=== PATIENT | female | born 1955 | race Asian ===

== ENCOUNTER → 2020-04-09 10:08 | Outpatient (BNVA) | payer MEDICARE, OTHER, SELFPAY | PROVIDERS: Visit Provider Registered Nurse | DX: M81.0 Age-related osteoporosis without current pathological fracture (principal); R00.2 Palpitations; E78.5 Hyperlipidemia, unspecified | CPT/HCPCS: 80053; 80061; 85025; 85651; 86141 ==

== ENCOUNTER 2020-04-25 15:23 | Outpatient (CLI) | payer MEDICARE, OTHER, SELFPAY ==
--- NOTE | 2020-04-25 15:45 | XR_ITS ---
WS: [id number] DEXA (DUAL ENERGY X-RAY ABSORPTIOMETRY) Bone mineral density was performed using a [employer] machine. HISTORY: osteoporosis COMPARISON: None available. Lumbar spine BMD (L1-L4): 1.141 g/cm2 T score: -0.3 Z score: 1.9 Total hip BMD: Left: 0.808 g/cm2. T score: -1.6 Z score: 0.1 Right: 0.843 g/cm2. T score: -1.3 Z score: 0.4 10 year probability of a major osteoporotic fracture is 7%. XR/XR DEXA axial skeleton* [id number] IMPRESSION: OSTEOPENIA based upon the WHO classification for females.
== END 2020-04-25 15:24 | disposition home or self-care (01) ==
LOC: RADWPI 15:28
PROVIDERS: PCP Registered Nurse; Visit Provider Registered Nurse
DX: M81.0 Age-related osteoporosis without current pathological fracture (principal); M85.89 Other specified disorders of bone density and structure, multiple sites
CPT/HCPCS: 77080

== ENCOUNTER 2020-05-29 10:39 | Outpatient (CLI) | payer MEDICARE, OTHER, SELFPAY ==
--- NOTE | 2020-05-29 10:46 | MM_ITS ---
WS: [id number] BILATERAL SCREENING DIGITAL MAMMOGRAM WITH CAD HISTORY: SCREENING COMPARISON: None available. Bilateral CC and MLO views submitted. Computer aided detection analyzed. Breast composition: The breasts are heterogeneously dense, which may obscure small masses. No suspici ous masses, microcalcifications or architectural distortion. MM/[place] [id number] IMPRESSION: BI-RADS: 1-Negative FOLLOW UP: 1 Year Follow-up
== END 2020-05-29 10:40 | disposition home or self-care (01) ==
LOC: RADWPI 10:45
PROVIDERS: PCP Registered Nurse; Visit Provider Registered Nurse
DX: Z12.31 Encounter for screening mammogram for malignant neoplasm of breast (principal)
CPT/HCPCS: 77067

== ENCOUNTER → 2020-06-27 11:13 | Outpatient (BNVA) | payer MEDICARE, OTHER, SELFPAY | PROVIDERS: PCP Registered Nurse; Referring Provider Registered Nurse; Visit Provider Podiatrist Foot & Ankle Surgery | DX: M79.671 Pain in right foot (principal); M20.11 Hallux valgus (acquired), right foot; S92.344D Nondisplaced fracture of fourth metatarsal bone, right foot, subsequent encounter for fracture with routine healing; Z46.89 Encounter for fitting and adjustment of other specified devices; S92.341D Displaced fracture of fourth metatarsal bone, right foot, subsequent encounter for fracture with routine healing; X58.XXXD Exposure to other specified factors, subsequent encounter | CPT/HCPCS: 73630; 97760; L4361 ==

== ENCOUNTER 2020-06-27 14:30 | Outpatient (CLI) | payer MEDICARE, OTHER, SELFPAY | END 2020-06-27 14:31 | disposition home or self-care (01) | LOC: SPT 14:32 | PROVIDERS: PCP Registered Nurse; Visit Provider Podiatrist Foot & Ankle Surgery | DX: Z46.89 Encounter for fitting and adjustment of other specified devices (principal); S92.341D Displaced fracture of fourth metatarsal bone, right foot, subsequent encounter for fracture with routine healing; X58.XXXD Exposure to other specified factors, subsequent encounter | CPT/HCPCS: 97760; L4361 ==

== ENCOUNTER 2020-07-03 12:30 | Outpatient (RCR) | payer MEDICARE, OTHER, SELFPAY | END 2020-07-30 23:59 | disposition home or self-care (01) | LOC: SPT 12:30 | PROVIDERS: PCP Registered Nurse; Visit Provider Registered Nurse | DX: M43.10 Spondylolisthesis, site unspecified (principal); M54.41 Lumbago with sciatica, right side | CPT/HCPCS: 97110; 97161 ==

== ENCOUNTER 2020-07-24 14:36 | Outpatient (CLI) | payer MEDICARE, OTHER, SELFPAY ==
--- NOTE | 2020-07-24 14:42 | MR_ITS ---
WS: [id number] MRI LUMBAR SPINE NONCONTRAST HISTORY: Spondylolisthesis with RIGHT sided pain. COMPARISON: None available. TECHNIQUE: Sagittal and axial multisequence imaging is submitted. 7 cervical and 12 thoracic vertebral bodies are identified. Cannot identify if T12 is rib-bearing on the MRI exam. There are only 4 lumbar type vertebral bodies. Fifth lumbar vertebral body is either ab sent or sacralized. This numbering pattern will be important if surgery is ever contemplated. C3 anterolisthesis by 5.5 mm and C4 anterolisthesis by 6.5 mm. Severe degenerative disc disease at C3 -4 and C4-5. There is a small amount of marrow edema along the adjacent endplates of L3 and L4 and in the right-sided facet joint of L3-4 and the paraspinal soft tissues. No acute fracture. Conus terminates normally at L1-2 disc level. L1-L2: Mild annular disc bulging with facet disease. Mild bilateral foraminal stenosis. L2-L3: Marked facet joint arthritis. Marked ligamentum flavum hypertrophy and facet arthritis and hyp ertrophic bone formation encroaching into the posterior thecal sac at the L3 level. Mild bilateral fo raminal stenosis. L3-L4: Diffuse annular disc bulging with marked facet joint arthritis. Hypertrophic bone formation en croaching into the posterior thecal sac. Moderate stenosis at the inferior L3 level with moderate blayne ateral foraminal stenosis. L4-S1: Unroofing of the disc due to anterolisthesis. Mild disc encroachment upon the ventral thecal s ac. Severe bilateral subarticular and foraminal stenosis, LEFT greater than RIGHT. Visualized retroperitoneum is negative. MR/MR lumbar spine wo con* [id number] IMPRESSION: 1. If there are 7 cervical and 12 thoracic vertebral bodies there are only 5 l umbar type vertebral bodies. Cannot evaluate rib-bearing vertebral bodies on th is MRI of the lumbar spine. For further numbering a CT of the lumbar spine to i nclude the lower thoracic vertebrae may be helpful. Otherwise only 4 lumbar joseph tebral bodies are identified on this MRI. If surgery is contemplated in this pa tient correlation with the imaging for correct vertebral levels will be very im portant. 2. Severe bilateral subarticular recess and foraminal stenosis at the L4-S1 le andrei, LEFT greater than RIGHT. 3. Moderate central and bilateral foraminal stenosis at L3-4. 4. Mild bilateral foraminal stenosis at L1-2 and L2-3. 5. Grade 1 anterolisthesis of L3 and L4.
== END 2020-07-24 14:37 | disposition home or self-care (01) ==
LOC: RADSHAW 14:39
PROVIDERS: PCP Registered Nurse; Visit Provider Registered Nurse
DX: M43.16 Spondylolisthesis, lumbar region (principal); M48.061 Spinal stenosis, lumbar region without neurogenic claudication; M48.07 Spinal stenosis, lumbosacral region
CPT/HCPCS: 72148

== ENCOUNTER → 2020-07-30 14:00 | Outpatient (BNVA) | payer MEDICARE, OTHER, SELFPAY | PROVIDERS: PCP Registered Nurse; Visit Provider Podiatrist Foot & Ankle Surgery | DX: M79.671 Pain in right foot (principal); S92.343D Displaced fracture of fourth metatarsal bone, unspecified foot, subsequent encounter for fracture with routine healing; X58.XXXD Exposure to other specified factors, subsequent encounter | CPT/HCPCS: 73630 ==

== ENCOUNTER 2020-07-31 06:00 | Outpatient (RCR) | payer MEDICARE, OTHER, SELFPAY | END 2020-08-30 23:59 | disposition home or self-care (01) | LOC: SPT 06:00 | PROVIDERS: PCP Registered Nurse; Visit Provider Registered Nurse | DX: M43.10 Spondylolisthesis, site unspecified (principal); M54.41 Lumbago with sciatica, right side | CPT/HCPCS: 97110 ==

== ENCOUNTER → 2020-08-09 10:33 | Outpatient (BNVA) | payer MEDICARE, OTHER, SELFPAY | PROVIDERS: PCP Registered Nurse; Visit Provider Orthopaedic Surgery | DX: M54.41 Lumbago with sciatica, right side (principal); M43.16 Spondylolisthesis, lumbar region; M43.17 Spondylolisthesis, lumbosacral region | CPT/HCPCS: 72114 ==

== ENCOUNTER 2020-08-31 06:00 | Outpatient (RCR) | payer MEDICARE, OTHER, SELFPAY | END 2020-09-30 23:59 | disposition home or self-care (01) | LOC: SPT 06:00 | PROVIDERS: PCP Registered Nurse; Visit Provider Registered Nurse | DX: M25.511 Pain in right shoulder (principal) | CPT/HCPCS: 97110 ==

== ENCOUNTER 2020-10-01 06:00 | Outpatient (RCR) | payer MEDICARE, OTHER, SELFPAY | END 2020-10-28 23:59 | disposition home or self-care (01) | LOC: SPT 06:00 | PROVIDERS: PCP Registered Nurse; Visit Provider Registered Nurse | DX: M25.511 Pain in right shoulder (principal) | CPT/HCPCS: 97110 ==

== ENCOUNTER 2020-10-29 06:00 | Outpatient (RCR) | payer MEDICARE, OTHER, SELFPAY | END 2020-11-28 23:59 | disposition home or self-care (01) | LOC: SPT 06:00 | PROVIDERS: PCP Registered Nurse; Referring Provider Orthopaedic Surgery; Visit Provider Orthopaedic Surgery | DX: M25.511 Pain in right shoulder (principal) | CPT/HCPCS: 97110 ==

== ENCOUNTER 2020-10-29 06:00 | Outpatient (RCR) | payer MEDICARE, OTHER, SELFPAY | END 2020-11-28 23:59 | disposition home or self-care (01) | LOC: SPT 06:00 | PROVIDERS: PCP Registered Nurse; Visit Provider Registered Nurse | DX: M25.511 Pain in right shoulder (principal) | CPT/HCPCS: 97110 ==

== ENCOUNTER → 2020-11-08 10:24 | Outpatient (BNVA) | payer MEDICARE, OTHER, SELFPAY | PROVIDERS: PCP Registered Nurse; Visit Provider Orthopaedic Surgery | DX: M19.011 Primary osteoarthritis, right shoulder (principal) | CPT/HCPCS: 73030 ==

== ENCOUNTER 2020-11-16 09:11 | Outpatient (CLI) | payer MEDICARE, OTHER, SELFPAY ==
--- NOTE | 2020-11-16 09:30 | MR_ITS ---
WS: [id number] MRI RIGHT SHOULDER NONCONTRAST TECHNIQUE: Sagittal T2, coronal T1, T2 and proton density imaging. Axial gradient PDE imaging. CLINICAL INFORMATION: M25.519 - Pain in unspecified shoulder COMPARISON: None. FINDINGS: Moderate degenerative arthritis at the AC joint. Mild edema. Synovial thickening. Mild downsloping of the acromion. Narrowing of the subacromial space. Prior rotator cuff repair with rotator cuff anchor . Small subacromial and subdeltoid effusion. Small joint effusion. Fluid in the subcoracoid bursa. Supraspinatus appears intact. Chronic thinning of the distal infraspinatus which appears intact. Flui d along the infraspinatus tendon sheath at the level of the AC joint. Normal teres minor. Normal subs capularis. Mild chronic thinning of the subscapularis. Normal biceps tendon in the bicipital groove. Degenerative fraying of the glenoid labrum which appears grossly intact. Biceps labral anchor appears intact. Chronic thinning of the intra-articular biceps tendon with fluid along the tendon sheath con sistent with tenosynovitis. MR/MR shoulder RT wo con* [id number] IMPRESSION: 1. Moderate degenerative arthritis at the AC joint with mild edema. 2. Subacromial and subdeltoid fluid. 3. Prior rotator cuff repair. Supraspinatus and infraspinatus appear intact. C hronic thinning of the infraspinatus distally. 4. Normal teres minor. 5. Chronic thinning of the subscapularis. 6. Atrophic but intact biceps tendon in the bicipital groove. 7. Atrophic intra-articular biceps tendon with tenosynovitis. 8. Small joint effusion with subcoracoid effusion.
== END 2020-11-16 09:12 | disposition home or self-care (01) ==
LOC: RADSHAW 09:13
PROVIDERS: PCP Registered Nurse; Visit Provider Orthopaedic Surgery
DX: M25.411 Effusion, right shoulder (principal); M65.811 Other synovitis and tenosynovitis, right shoulder; M19.011 Primary osteoarthritis, right shoulder; R60.0 Localized edema
CPT/HCPCS: 73221

== ENCOUNTER → 2020-11-26 09:20 | Outpatient (BNVA) | payer MEDICARE, OTHER, SELFPAY | PROVIDERS: PCP Registered Nurse; Referring Provider Orthopaedic Surgery; Visit Provider Anesthesiology Pain Medicine | DX: M54.41 Lumbago with sciatica, right side (principal); M54.42 Lumbago with sciatica, left side; M48.07 Spinal stenosis, lumbosacral region; M43.16 Spondylolisthesis, lumbar region; M43.17 Spondylolisthesis, lumbosacral region | CPT/HCPCS: 99205 ==

== ENCOUNTER 2020-11-29 06:00 | Outpatient (RCR) | payer MEDICARE, OTHER, SELFPAY | END 2020-12-28 23:59 | disposition home or self-care (01) | LOC: SPT 06:00 | PROVIDERS: PCP Registered Nurse; Referring Provider Orthopaedic Surgery; Visit Provider Orthopaedic Surgery | DX: M25.511 Pain in right shoulder (principal) | CPT/HCPCS: 97110 ==

== ENCOUNTER → 2020-11-30 12:56 | Outpatient (BNVA) | payer MEDICARE, OTHER, SELFPAY | PROVIDERS: PCP Registered Nurse; Visit Provider Anesthesiology Pain Medicine | DX: M54.16 Radiculopathy, lumbar region (principal); M54.41 Lumbago with sciatica, right side | CPT/HCPCS: 64483; 64484; J1100; J3490 ==

== ENCOUNTER → 2020-12-12 12:35 | Outpatient (BNVA) | payer MEDICARE, OTHER, SELFPAY | PROVIDERS: PCP Registered Nurse; Visit Provider Anesthesiology Pain Medicine | DX: M54.41 Lumbago with sciatica, right side (principal) | CPT/HCPCS: 64483; 64484; J1100; J3490 ==

== ENCOUNTER → 2020-12-25 10:58 | Outpatient (BNVA) | payer MEDICARE, OTHER, SELFPAY | PROVIDERS: PCP Registered Nurse; Visit Provider Anesthesiology Pain Medicine | DX: M54.41 Lumbago with sciatica, right side (principal); M43.16 Spondylolisthesis, lumbar region; M48.07 Spinal stenosis, lumbosacral region; M43.17 Spondylolisthesis, lumbosacral region | CPT/HCPCS: 99214 ==

== ENCOUNTER → 2021-01-24 10:07 | Outpatient (BNVA) | payer MEDICARE, OTHER, SELFPAY | PROVIDERS: PCP Registered Nurse; Visit Provider Anesthesiology Pain Medicine | DX: M54.41 Lumbago with sciatica, right side (principal); M48.07 Spinal stenosis, lumbosacral region; M43.16 Spondylolisthesis, lumbar region; M43.17 Spondylolisthesis, lumbosacral region | CPT/HCPCS: 99214 ==

== ENCOUNTER → 2021-04-16 10:23 | Outpatient (BNVA) | payer MEDICARE, OTHER, SELFPAY | PROVIDERS: PCP Registered Nurse; Visit Provider Registered Nurse | DX: I10 Essential (primary) hypertension (principal); M81.0 Age-related osteoporosis without current pathological fracture; E78.5 Hyperlipidemia, unspecified; Z12.31 Encounter for screening mammogram for malignant neoplasm of breast; M85.9 Disorder of bone density and structure, unspecified; Z12.11 Encounter for screening for malignant neoplasm of colon; Z00.00 Encounter for general adult medical examination without abnormal findings; Z13.6 Encounter for screening for cardiovascular disorders | CPT/HCPCS: 80053; 80061; 85025 ==

== ENCOUNTER → 2021-04-22 09:44 | Outpatient (BNVA) | payer MEDICARE, OTHER, SELFPAY | PROVIDERS: PCP Registered Nurse; Visit Provider Anesthesiology Pain Medicine | DX: M54.41 Lumbago with sciatica, right side (principal); M43.16 Spondylolisthesis, lumbar region; M48.07 Spinal stenosis, lumbosacral region; M43.17 Spondylolisthesis, lumbosacral region | CPT/HCPCS: 99213 ==

== ENCOUNTER 2021-06-03 13:35 | Outpatient (CLI) | payer MEDICARE, OTHER, SELFPAY ==
--- NOTE | 2021-06-03 14:00 | MM_ITS ---
WS: [id number] BILATERAL SCREENING DIGITAL MAMMOGRAM WITH CAD HISTORY: Z12.31 - Encounter for screening mammogram for malignant ... COMPARISON: 05/29/2020 04/21/2019 Bilateral CC and MLO views submitted. Computer aided detection analyzed. Breast composition: The breasts are heterogeneously dense, which may obscure small masses. No suspici ous masses, microcalcifications or architectural distortion. MM/[place] [id number] IMPRESSION: BI-RADS: 1-Negative FOLLOW UP: 1 Year Follow-up
--- NOTE | 2021-06-03 14:42 | XR_ITS ---
WS: [id number] Bone mineral density performed on a [employer] IDXA, 06/03/2021 Clinical data: M81.0 - Age-related osteoporosis without current pathology. Comparison study: DEXA scan, 04/25/2020 Findings: The first 4 lumbar vertebral bodies demonstrated the bone mineral density of 1.159 g/cm2 for a young adult T score of -0.2. The bone mineral density has increased slightly compared to the prior study. Measurement of the left hip reveals a bone mineral density of 0.828 g/cm2 with a young adult T score of -1.4. Measurement of the right hip reveals the bone mineral density of 0.850 g/cm2 for young adult T score of -1.3. The bone mineral density of the hips has increased slightly compared to the prior study. XR/XR DEXA axial skeleton* [id number] Impression: 1. Normal bone mineral density of the lumbar spine. 2. Osteopenia of both hips.
== END 2021-06-03 13:36 | disposition home or self-care (01) ==
LOC: RADSHAW 13:39
PROVIDERS: PCP Registered Nurse; Visit Provider Registered Nurse
DX: Z12.31 Encounter for screening mammogram for malignant neoplasm of breast (principal); M81.0 Age-related osteoporosis without current pathological fracture; M85.88 Other specified disorders of bone density and structure, other site
CPT/HCPCS: 77067; 77080

== ENCOUNTER → 2021-07-29 09:59 | Outpatient (BNVA) | payer MEDICARE, OTHER, SELFPAY | PROVIDERS: PCP Registered Nurse; Visit Provider Anesthesiology Pain Medicine | DX: M48.07 Spinal stenosis, lumbosacral region (principal); M43.16 Spondylolisthesis, lumbar region; M43.17 Spondylolisthesis, lumbosacral region; M79.604 Pain in right leg; M79.605 Pain in left leg | CPT/HCPCS: 99214 ==

== ENCOUNTER → 2022-02-05 10:33 | Outpatient (BNVA) | payer MEDICARE, OTHER, SELFPAY | PROVIDERS: PCP Registered Nurse; Visit Provider Internal Medicine Cardiovascular Disease | DX: I34.0 Nonrheumatic mitral (valve) insufficiency (principal); I36.1 Nonrheumatic tricuspid (valve) insufficiency; R00.2 Palpitations; I49.8 Other specified cardiac arrhythmias; R29.898 Other symptoms and signs involving the musculoskeletal system | CPT/HCPCS: 93005; 99214 ==

== ENCOUNTER 2022-02-11 09:01 | Outpatient (CLI) | payer MEDICARE, OTHER, SELFPAY ==
--- NOTE | 2022-02-11 09:30 | MR_ITS ---
WS: [id number] MRI CERVICAL SPINE NONCONTRAST TECHNIQUE: Sagittal T1, T2 and STIR imaging. Axial T2, gradient, and fiesta imaging. CLINICAL INFORMATION: G56.90 - Unspecified mononeuropathy of unspecified upper ... COMPARISON: None. FINDINGS: Straightening of the normal cervical lordosis. Small disc osteophyte protrusion C4-C6. Cord signal is normal. C2-C3: Mild LEFT and no RIGHT foraminal narrowing. Moderate LEFT facet arthropathy. Spinal canal is p atent. C3-C4: Mild facet arthropathy. Spinal canal and foramen are patent. C4-C5: Disc osteophyte complex with endplate ridging. Mild bilateral bony foraminal narrowing RIGHT g reater than LEFT. Mild facet arthropathy. C5-C6: Disc osteophyte complex with endplate ridging. Slight contact of the cervical cord. Mild centr al canal stenosis. Moderate bilateral bony foraminal narrowing. C6-C7: Disc osteophyte complex with endplate ridging. Moderate LEFT greater than RIGHT bony foraminal narrowing. Spinal canal is patent. C7-T1: Mild LEFT and no significant RIGHT foraminal narrowing. Spinal canal is patent. Tiny disc protrusions in the upper thoracic spine at T1-T2 and T2-T3. MR/MR cervical spin wo con* [id number] IMPRESSION: 1. Straightening of the normal cervical lordosis. Cord signal is normal. 2. Mild central canal stenosis C5-C6 with small central disc osteophyte protru kristine. Slight contact of the cervical cord. Mild central canal stenosis at this level. 3. Moderate bilateral C5-C6 bony foraminal narrowing. 4. Mild RIGHT greater than LEFT C4-C5 bony foraminal narrowing. 5. Moderate LEFT greater than RIGHT C6-C7 bony foraminal narrowing. 6. Moderate facet arthropathy C4-C5 C5-C6.
== END 2022-02-11 09:02 | disposition home or self-care (01) ==
LOC: RAD 09:02
PROVIDERS: PCP Registered Nurse; Visit Provider Registered Nurse
DX: M99.01 Segmental and somatic dysfunction of cervical region (principal); G56.90 Unspecified mononeuropathy of unspecified upper limb; M48.02 Spinal stenosis, cervical region; M25.78 Osteophyte, vertebrae; M47.812 Spondylosis without myelopathy or radiculopathy, cervical region
CPT/HCPCS: 72141

== ENCOUNTER 2022-02-20 06:21 | Day surgery (SDC) | payer MEDICARE, OTHER, SELFPAY ==
[2022-02-18 14:21] VITALS: BMI 20.5
[2022-02-20 06:42] VITALS: BP 140/80; PULSE 76; RESP 16; TEMP 36.4; O2SAT 99
[2022-02-20] MEDS: sodium chloride 0.9% 1,000 ML 30 ML IV (06:46)
--- NOTE | 2022-02-20 06:46 | P.HP_ITS ---
Same Day Surgery H&P Indication for Procedure/HPI DATE OF PROCEDURE: February 20, 2022 CHIEF COMPLAINT/INDICATIONFOR SURGICAL PROCEDURE: Screening colonoscopy PREOP DIAGNOSIS: Screening colonoscopy PLANNED PROCEDURE: Operation Date: 02/20/22 08:00 Proposed Procedures p Colonoscopy 13496 Z12.11(Not Applicable) - Delfino Anand MD This is a pleasant 66 years old female patient comes today for screening colonoscopy. Patient reports no change in bowel habits or bleeding per rectum or history of colon polyps or colon cancer. ROS All systems have been reviewed negative except as for the above or per problem list. Medications/Allergies* Home Medications Medication Instructions Recorded Confirmed Type calcium carbonate 600 mg-vitamin 1 cap PO DAILY 04/05/20 02/18/22 History D3 12.5 mcg (500 unit) capsule (Calcium 600 with Vitamin D3) cholecalciferol (vitamin D3) 25 25 mcg PO DAILY 04/05/20 02/18/22 History mcg (1,000 unit) capsule coenzyme Q10 [Co Q-10] 100 mg PO DAILY 04/05/20 02/18/22 History glucosamine HCl 1,500 mg tablet 1,500 mg PO BID tab 04/05/20 02/18/22 History magnesium oxide 400 mg PO DAILY 04/05/20 02/18/22 History turmeric 1,000 mg PO DAILY 04/05/20 02/18/22 History vitamin B complex (B 1 tab PO DAILY 04/05/20 02/18/22 History Complex-Vitamin B12) vitamin E (dl, acetate) 180 mg 400 unit PO DAILY 04/05/20 02/18/22 History (400 unit) capsule ascorbate calcium (vitamin C) 500 500 mg PO DAILY tab 02/05/22 02/18/22 History mg tablet potassium gluconate 595 mg (99 mg) 595 mg PO DAILY 02/05/22 02/18/22 History tablet strontium gluconate-vitamins 1 tab PO DAILY 02/18/22 02/18/22 History [id number] acid 680 mg-30 mg tablet Allergies/Adverse Reactions Allergy/AdvReac Type Severity Reaction Status Date / Time No Known Allergies Allergy Verified 02/20/22 07:42 Pertinent History/Comorbid Conditions* Medical History (Updated 02/14/22 @ 16:18 by KIRSTY Pang) Intermittent palpitations Osteoporosis Tricuspid regurgitation Surgical History (Updated 04/09/20 @ 09:39 by KIRSTY Pang) History of hysterectomy including cervix Family History (Updated 11/26/20 @ 10:01 by Camelia Ding LPN) Father Mother Alzheimer disease Father Hypertension Mother Social History Smoking and tobacco status: never smoked Alcohol intake: never Lives independently: Yes History of recent travel: No Pertinent Exam Findings alert, oriented x 3, clear to auscultation bilaterally, regular rate & rhythm and procedure specific exam findings (Abdominal examination nontender nondistended soft) Recommendations Surgery/Procedure today (Screening colonoscopy ) Other Plans: Plan of care; After thorough history and physical examination and reviewing the chart, plan to perform screening colonoscopy. I discussed with the patient in details the risks,benefits,alternatives and indications.The risk of aspiration, bleeding, soft tissue injury, perforation of the colon and other potential concomitant complications were explained to the patient in details,also the potential need for Laproscoy/Laparotomy to repair any related complications including but not limited to colectomy and or Closotomy.The patient understood this well and did agree to proceed. Rationale was carefully and clearly discussed with the patient.Appropriate informed consent have been reviewed and signed All questions have been answered and all concerns have been addressed to patient's satisfaction. Verbal and written Instructions were given to the patient for colonoscopy prep Coding Level of Care Code Acute Post Doctoral Researcher for Howard Higginbotham
--- NOTE | 2022-02-20 08:01 | ANES.PREANE2 ---
Pre-Anesthetic Assessment Height/Weight: Height 1.55 m Weight 49.442 kg Temp Pulse Resp BP Pulse Ox 97.5 F L 76 16 140/80 99 02/20/22 06:42 02/20/22 06:42 02/20/22 06:42 02/20/22 06:42 02/20/22 06:42 Preop Diagnosis: Screening colonoscopy Operation Date: 02/20/22 08:00 Proposed Procedures p Colonoscopy 29536 Z12.11(Not Applicable) - Delfino Anand MD Familial anesthetic complications: None Was Beta Kimberly taken within 24 hours: N/A Was Clonidine taken within 24 hours: N/A Last intake: Intake Last Liquid Date 02/19/22 Last Liquid Time 21:00 Last Solid Date 02/18/22 Last Solid Time 20:00 Social No alcohol and No tobacco Exam alert, oriented x 3, clear to auscultation bilaterally and regular rate & rhythm Airway Submandibular: within normal limits Cervical ROM: within normal limits Mallampati: Class I Dentition: full History/ROS No significant complaints Pulmonary None reported CV/HEM Murmur (TR) None reported Hepatic None reported GI None reported Metabolic None reported Musc/skel Lower Back Pain and Osteoarthritis/DJD Neuropsych None reported Anesthetic Plan ASA status: 2 Anesthesia: Anesthesia Evaluation and General Other: I discussed with the patient risks, goals, and benefits of MAC and general anesthesia. We discussed spectrum of MAC anesthesia including conversion to general as well as possibility of recall of intraoperative stimuli including discomfort/pain. Patient agrees to proceed with MAC. Risk of > 500 ml blood loss (7ml/kg in children): No Medications/Allergies Home Medications Medication Instructions Recorded Confirmed Last Taken Type calcium carbonate 600 mg-vitamin 1 cap PO DAILY 04/05/20 02/18/22 02/18/22 History D3 12.5 mcg (500 unit) capsule (Calcium 600 with Vitamin D3) cholecalciferol (vitamin D3) 25 25 mcg PO DAILY 04/05/20 02/18/22 02/18/22 History mcg (1,000 unit) capsule coenzyme Q10 [Co Q-10] 100 mg PO DAILY 04/05/20 02/18/22 02/18/22 History glucosamine HCl 1,500 mg tablet 1,500 mg PO BID tab 04/05/20 02/18/22 02/18/22 History magnesium oxide 400 mg PO DAILY 04/05/20 02/18/22 02/18/22 History turmeric 1,000 mg PO DAILY 04/05/20 02/18/22 02/18/22 History vitamin B complex (B 1 tab PO DAILY 04/05/20 02/18/22 02/18/22 History Complex-Vitamin B12) vitamin E (dl, acetate) 180 mg 400 unit PO DAILY 04/05/20 02/18/22 02/18/22 History (400 unit) capsule ascorbate calcium (vitamin C) 500 500 mg PO DAILY tab 02/05/22 02/18/22 02/18/22 History mg tablet potassium gluconate 595 mg (99 mg) 595 mg PO DAILY 02/05/22 02/18/22 02/18/22 History tablet strontium gluconate-vitamins 1 tab PO DAILY 02/18/22 02/18/22 02/18/22 History [id number]-[id number] acid 680 mg-30 mg tablet Allergies Allergy/AdvReac Type Severity Reaction Status Date / Time No Known Allergies Allergy Verified 02/20/22 07:42 Current Medications Generic Name Dose Route Start Last Admin Trade Name Freq PRN Reason Stop Dose Admin Sodium Chloride 1,000 mls @ 30 mls/hr 02/20/22 06:45 02/20/22 06:46 Sodium Chloride 0.9% IV 02/21/22 06:44 30 mls/hr .Q24H ERICA Administration PFSH Anesthesia Medical History (Updated 02/20/22 @ 08:30 by Delfino Anand MD) Intermittent palpitations Osteoporosis Tricuspid regurgitation Surgical History History of hysterectomy including cervix Family History Mother Hypertension Father Alzheimer disease Social History Smoking and tobacco status: never smoked Alcohol intake: never Lives independently: Yes History of recent travel: No Data Anesthesia Cardiac Studies: Holter Monitor 05/01/20
[2022-02-20 08:28] VITALS: BP 119/66; PULSE 66; RESP 16; TEMP 36.1; O2SAT 97
[2022-02-20 08:33] VITALS: BP 116/59; PULSE 67; RESP 18; O2SAT 97
[2022-02-20 08:40] VITALS: BP 127/71; PULSE 69; RESP 18; TEMP 36.2; O2SAT 98
--- NOTE | 2022-02-20 10:14 | ANE.PACU2 ---
Inpatient post-anesthesia follow up: Airway intact: Yes Vital signs: Temperature 97.2 F Pulse Rate 69 Respiratory Rate 18 Blood Pressure 127/71 Pulse Oximetry 98 Oxygen Delivery Me thod Room Air Oxygen Flow Rate Fraction of Inspir ed Oxygen Hydration adequate: Yes Nausea and vomiting: No Pain level: 1 Mental status: Baseline
== END 2022-02-20 08:58 | disposition home or self-care (01) ==
PROVIDERS: PCP Registered Nurse; Visit Provider Surgery
PROC: 0DJD8ZZ Inspection of Lower Intestinal Tract, Via Natural or Artificial Opening Endoscopic (ICD-10-PCS; CPT 45378; principal; 2022-02-20 08:00)
DX: Z12.11 Encounter for screening for malignant neoplasm of colon (principal); M81.0 Age-related osteoporosis without current pathological fracture
CPT/HCPCS: G0121; J2704; J7030

== ENCOUNTER 2022-05-07 06:00 | Outpatient (RCR) | payer MEDICARE, OTHER, SELFPAY | END 2022-05-30 23:59 | disposition home or self-care (01) | LOC: SPT 06:00 | PROVIDERS: PCP Registered Nurse; Visit Provider Physician Assistant | DX: M48.062 Spinal stenosis, lumbar region with neurogenic claudication (principal) | CPT/HCPCS: 97110; 97161 ==

== ENCOUNTER → 2022-05-13 10:33 | Outpatient (BNVA) | payer MEDICARE, OTHER, SELFPAY | PROVIDERS: PCP Registered Nurse; Visit Provider Registered Nurse | DX: Z00.00 Encounter for general adult medical examination without abnormal findings (principal); Z13.6 Encounter for screening for cardiovascular disorders; Z12.31 Encounter for screening mammogram for malignant neoplasm of breast; Z79.899 Other long term (current) drug therapy | CPT/HCPCS: 80053; 80061; 85025 ==

== ENCOUNTER 2022-05-31 06:00 | Outpatient (RCR) | payer MEDICARE, OTHER, SELFPAY | END 2022-06-30 23:59 | disposition home or self-care (01) | LOC: SPT 06:00 | PROVIDERS: PCP Registered Nurse; Visit Provider Physician Assistant | DX: M48.062 Spinal stenosis, lumbar region with neurogenic claudication (principal) | CPT/HCPCS: 97110 ==

== ENCOUNTER 2022-07-01 06:00 | Outpatient (RCR) | payer MEDICARE, OTHER, SELFPAY | END 2022-07-23 16:24 | disposition home or self-care (01) | LOC: SPT 06:00 | PROVIDERS: PCP Registered Nurse; Visit Provider Physician Assistant | DX: M48.062 Spinal stenosis, lumbar region with neurogenic claudication (principal) | CPT/HCPCS: 97110 ==

== ENCOUNTER 2022-07-21 09:22 | Outpatient (CLI) | payer MEDICARE, OTHER, SELFPAY ==
--- NOTE | 2022-07-21 09:31 | MM_ITS ---
WS: [id number] SCREENING DIGITAL TOMOSYNTHESIS MAMMOGRAM WITH CAD HISTORY: SCREENING COMPARISON: 06/03/2021 and 05/29/2020 Bilateral CC and MLO with tomosynthesis views submitted. Synthetic mammography reviewed. Computer aid ed detection analyzed. Breast composition: The breasts are heterogeneously dense, which may obscure small masses. No suspici ous masses, microcalcifications or architectural distortion. MM/[place] [id number] IMPRESSION: BI-RADS: 1-Negative FOLLOW UP: 1 Year Follow-up
--- NOTE | 2022-07-21 09:35 | XR_ITS ---
WS: [id number] DEXA (DUAL ENERGY X-RAY ABSORPTIOMETRY) Bone mineral density was performed using a [employer] machine. HISTORY: M81.0 - Age-related osteoporosis without current pathology... COMPARISON: 06/03/2021 Lumbar spine BMD (L1-L4): 1.137 g/cm2 T score: -0.4 Z score: 1.9 Total hip BMD: Left: 0.854 g/cm2. T score: -1.2 Z score: 0.6 Right: 0.771 g/cm2. T score: -1.9 Z score: -0.1 10 year probability of a major osteoporotic fracture is 8.5%. Compared to the prior study from 06/03/2021. Lumbar spine bone mineral density has decreased by 1.9%. Bilateral hips bone mineral density has decreased by 3.2%. XR/XR DEXA axial skeleton* [id number] IMPRESSION: OSTEOPENIA based upon the WHO classification for females. Significant decrease in bone mineral density within the hips since the prior .
== END 2022-07-21 09:23 | disposition home or self-care (01) ==
LOC: RAD 09:24
PROVIDERS: PCP Registered Nurse; Visit Provider Registered Nurse
DX: Z12.31 Encounter for screening mammogram for malignant neoplasm of breast (principal); M81.0 Age-related osteoporosis without current pathological fracture; M85.80 Other specified disorders of bone density and structure, unspecified site
CPT/HCPCS: 77063; 77067; 77080

== ENCOUNTER → 2022-10-15 10:50 | Outpatient (BNVA) | payer MEDICARE, OTHER, SELFPAY | PROVIDERS: PCP Registered Nurse; Visit Provider Internal Medicine Cardiovascular Disease | DX: R00.2 Palpitations (principal); I47.1 Supraventricular tachycardia | CPT/HCPCS: 99213; Q3014 ==

== ENCOUNTER → 2023-05-14 10:27 | Outpatient (BNVA) | payer MEDICARE, OTHER, SELFPAY | PROVIDERS: PCP Registered Nurse; Visit Provider Registered Nurse | DX: E55.9 Vitamin D deficiency, unspecified (principal); M85.9 Disorder of bone density and structure, unspecified; Z13.6 Encounter for screening for cardiovascular disorders; Z12.31 Encounter for screening mammogram for malignant neoplasm of breast; M81.0 Age-related osteoporosis without current pathological fracture | CPT/HCPCS: 80053; 80061; 82306; 85025 ==

== ENCOUNTER → 2023-05-22 13:25 | Outpatient (BNVA) | payer MEDICARE, OTHER, SELFPAY | PROVIDERS: PCP Registered Nurse; Visit Provider Nurse Practitioner Family | DX: M79.671 Pain in right foot (principal) | CPT/HCPCS: 73630 ==

== ENCOUNTER → 2023-06-11 11:03 | Outpatient (BNVA) | payer MEDICARE, OTHER, SELFPAY | PROVIDERS: PCP Registered Nurse; Visit Provider Podiatrist Foot & Ankle Surgery | DX: S92.501A Displaced unspecified fracture of right lesser toe(s), initial encounter for closed fracture; W22.8XXA Striking against or struck by other objects, initial encounter; Y93.K1 Activity, walking an animal | CPT/HCPCS: 73630; 99213 ==

== ENCOUNTER 2023-07-29 12:25 | Outpatient (CLI) | payer MEDICARE, OTHER, SELFPAY ==
--- NOTE | 2023-07-29 12:56 | MM_ITS ---
WS: [id number] BILATERAL 3D TOMOSYNTHESIS DIGITAL SCREENING MAMMOGRAPHY WITH CAD CLINICAL INFORMATION: SCREEN HISTORY: Screening mammogram. No current complaints. COMPARISON: 2021 TECHNIQUE: Bilateral CC and MLO views. FINDINGS: The breasts are composed of heterogeneous fibroglandular density tissue, which can limit the detectio n of small underlying mass lesions. No suspicious mass, asymmetry, calcifications, or architectural d istortion. No evidence of malignancy. IMPRESSION: MM/[place] [id number] BI-RADS: 1-Negative FOLLOW UP: 1 Year Follow-up Recommend return to annual screening mammography.
--- NOTE | 2023-07-29 13:30 | XR_ITS ---
WS: [email or web address] SCREENING DEXA SCAN Grabbed CLINICAL INFORMATION: M81.0 - Age-related osteoporosis without current patholog... COMPARISON: 2021 FINDINGS: The L1-L4 bone mineral density measures 1.219 g/cm2. This corresponds to a T score score of 0.3 and Z score of 2.6. Left femoral neck bone mineral density measures 0.873 g/cm2. This corresponds to a T score of -1.1 an d Z score of 0.8. Right femoral neck bone mineral density measures 0.852 g/cm2. This corresponds to a T score -1.2of an d Z score of 0.6. Mean femoral neck bone mineral density measures 0.862 g/cm2. This corresponds to a T score of -1.2 an d Z score of 0.7. IMPRESSION: Normal bone mineralization lumbar spine. Osteopenia femoral necks. Patient's FRAX calculated 10 year probability for major osteoporotic fracture is 9.9% and osteoporoti c hip fracture is 2.0%. Bone mineral density lumbar spine increased 7.2% Bone mineral density femoral necks increased 6.2%
== END 2023-07-29 12:26 | disposition home or self-care (01) ==
LOC: RAD 12:25
PROVIDERS: PCP Registered Nurse; Visit Provider Registered Nurse
DX: Z12.31 Encounter for screening mammogram for malignant neoplasm of breast; Z13.820 Encounter for screening for osteoporosis; M81.0 Age-related osteoporosis without current pathological fracture; M85.88 Other specified disorders of bone density and structure, other site
CPT/HCPCS: 77063; 77067; 77080

== ENCOUNTER 2023-12-08 14:57 | Outpatient (CLI) | payer MEDICARE, OTHER, SELFPAY ==
--- NOTE | 2023-12-08 15:03 | XRR_ITS ---
PROCEDURE INFORMATION: Exam: XR Right Knee Exam date and time: 12/08/2023 3:12 PM Age: 68 years old Clinical indication: Other: M70.41 - prepatellar bursitis, right knee; Additional info: PT fell 10 days ago TECHNIQUE: Imaging protocol: Radiologic exam of the right knee. Views: 3 views. COMPARISON: CR XR foot RT min 3V* [id number] 06/11/2023 11:07 AM FINDINGS: Bones/joints: See Soft tissues finding. Soft tissues: Prominent soft tissue swelling is noted anterior and superior to the patella. No fracture or joint effusion noted. XR/XR knee RT 3V* [id number] IMPRESSION: Soft tissue swelling anterior and superior to the patella. This can be seen with hematoma from trauma. Quadriceps tendon tear can also appear similar.
== END 2023-12-08 14:58 | disposition home or self-care (01) ==
LOC: RAD 15:00
PROVIDERS: PCP Registered Nurse; Visit Provider Registered Nurse
DX: M70.41 Prepatellar bursitis, right knee (principal); M79.89 Other specified soft tissue disorders
CPT/HCPCS: 73562

== ENCOUNTER → 2024-01-14 09:48 | Outpatient (BNVA) | payer MEDICARE, OTHER, SELFPAY | PROVIDERS: PCP Registered Nurse; Referring Provider Registered Nurse; Visit Provider Physician Assistant | DX: M25.461 Effusion, right knee (principal); S89.91XA Unspecified injury of right lower leg, initial encounter; M25.469 Effusion, unspecified knee; M17.0 Bilateral primary osteoarthritis of knee; X58.XXXA Exposure to other specified factors, initial encounter | CPT/HCPCS: 73560; 73565; 99203 ==

== ENCOUNTER → 2024-03-31 13:20 | Outpatient (BNVA) | payer MEDICARE, OTHER, SELFPAY | PROVIDERS: PCP Registered Nurse; Visit Provider Internal Medicine | DX: R00.2 Palpitations (principal); M48.02 Spinal stenosis, cervical region; M81.0 Age-related osteoporosis without current pathological fracture; I08.1 Rheumatic disorders of both mitral and tricuspid valves | CPT/HCPCS: 99214 ==

== ENCOUNTER 2024-04-29 10:53 | Outpatient (CLI) | payer MEDICARE, OTHER, SELFPAY ==
--- NOTE | 2024-04-29 11:15 | USCV_ITS ---
Joseluis Peck Age: 69 Gender: F : 1955 Exam Date: 04/29/2024 11:10 Ordering Phys: Gregor Schreiber M.D ([email or web address]) Technologist: Ko Ba Exam Location: [facility] [place] Indication: mitral regurg BP: 130 / 74 HR: 60 Rhythm: Sinus Technical Quality: Adequate MEASUREMENTS (Male / Female) Normal Values 2D ECHO LV Diastolic Diameter PLAX 4.3 cm 4.2 - 5.9 / 3.9 - 5.3 cm IVS Diastolic Thickness 0.7 cm 0.6 - 1.0 / 0.6 - 0.9 cm IVS Systolic Thickness 1.3 cm LVPW Diastolic Thickness 0.9 cm 0.6 - 1.0 / 0.6 - 0.9 cm LVPW Systolic Thickness 1.8 cm LVOT Diameter 2.0 cm LV Ejection Fraction 2D Teich 84.5 % LV Ejection Fraction MOD 4C 63.3 % LV Ejection Fraction MOD 2C 69.1 % LV Ejection Fraction 2C AL 69.8 % LA Diameter 3.0 cm RA Systolic Volume 4C AL 45.6 ml RA Systolic Volume 4C MOD 46.8 ml LA Sys Volume AL 40.3 cm cubed LA Sys Volume Index AL 28.4 cm cubed/m squared Aorta at Sinotubular Diameter 2.0 cm IVC Diameter 1.6 cm M-MODE LA Ao Ratio MM 1.7 AV Cusp Separation MM 1.6 cm DOPPLER AV Peak Velocity 139.7 cm/s LVOT Peak Velocity 91.0 cm/s AV Area Cont Eq vti 2.2 cm squared AV Area Cont Eq pk 2.1 cm squared MV Peak Velocity 98.0 cm/s MV Area PHT 5.9 cm squared Mitral E to A Ratio 1.4 TV Peak Velocity 364.3 cm/s TR Peak Velocity 386.5 cm/s TR Peak Gradient 59.8 mmHg TR Mean Velocity 307.0 cm/s TR Mean Gradient 39.3 mmHg TR Velocity Time Integral 97.6 cm PV Peak Velocity 74.7 cm/s RV Ejection Time 0.3 s FINDINGS Left Ventricle Left ventricle is normal in size. LV systolic function is normal with EF of 60-65%. No regional wall motion abnormalities are seen. Right Ventricle Normal in size and function Right Atrium Normal in size Left Atrium Normal in size Mitral Valve Structurally normal mitral valve. Mild mitral regurgitation. Aortic Valve Structurally normal aortic valve. No significant stenosis. Trace aortic regurgitation. Tricuspid Valve Mild tricuspid regurgitation. RVSP is 40-45mmHg. This is consistent with mild pulmonary hypertension Pulmonic Valve Mild pulmonic regurgitation. Pericardium Normal Aorta Normal in size IVC Appears to be normal CONCLUSIONS LV systolic function is normal with EF of 60-65% Mild mitral regurgitation Trace aortic regurgitation. Mild tricuspid regurgitation. Mild pulmonary hypertension No comparison studies are available. Gregor Schreiber MD (Electronically Signed) Final Date: 02 May 2024 18:31 S
== END 2024-04-29 10:54 | disposition home or self-care (01) ==
LOC: RAD 10:53
PROVIDERS: PCP Registered Nurse; Visit Provider Internal Medicine
DX: I34.0 Nonrheumatic mitral (valve) insufficiency (principal); I35.1 Nonrheumatic aortic (valve) insufficiency; I07.1 Rheumatic tricuspid insufficiency; I27.20 Pulmonary hypertension, unspecified
CPT/HCPCS: 93306

== ENCOUNTER 2024-05-16 06:00 | Outpatient (CLI) | payer MEDICARE, OTHER, SELFPAY | END 2024-05-16 06:01 | disposition home or self-care (01) | LOC: RAD 06-03 13:32 | PROVIDERS: PCP Registered Nurse; Visit Provider Registered Nurse | DX: Z13.6 Encounter for screening for cardiovascular disorders (principal); E55.9 Vitamin D deficiency, unspecified; I10 Essential (primary) hypertension | CPT/HCPCS: 80053; 80061; 82306; 85025 ==

== ENCOUNTER 2024-08-08 12:43 | Outpatient (CLI) | payer MEDICARE, OTHER, SELFPAY ==
--- NOTE | 2024-08-08 12:45 | XR_ITS ---
WS: [id number] DEXA (DUAL ENERGY X-RAY ABSORPTIOMETRY) Bone mineral density was performed using a [employer] machine. HISTORY: OSTEOPOROSIS COMPARISON: 07/29/2023 Lumbar spine BMD (L1-L4): 1.238 g/cm2 T score: 0.5 Z score: 2.7 Total hip BMD: Left: 0.865 g/cm2. T score: -1.1 Z score: 0.7 Right: 0.868 g/cm2. T score: -1.1 Z score: 0.8 10 year probability of a major osteoporotic fracture is 6.1%. Compared to the prior study from 07/29/2023. Lumbar spine bone mineral density has increased by 1.6%. Bilateral hips bone mineral density has increased by 0.6%. XR/XR DEXA axial skeleton* [id number] IMPRESSION: OSTEOPENIA based upon the WHO classification for females. No significant change in bone mineral density within the lumbar spine or hips.
--- NOTE | 2024-08-08 13:30 | MM_ITS ---
WS: [id number] BILATERAL 3D TOMOSYNTHESIS DIGITAL SCREENING MAMMOGRAPHY WITH CAD CLINICAL INFORMATION: Z12.31 - Encounter for screening mammogram for malignant ... HISTORY: Screening mammogram. No current complaints. COMPARISON: 2022 TECHNIQUE: Bilateral CC and MLO views. FINDINGS: The breasts are composed of heterogeneous fibroglandular density tissue, which can limit the detectio n of small underlying mass lesions. No suspicious mass, asymmetry, calcifications, or architectural d istortion. No evidence of malignancy. Vascular calcification MM/MM [facility] tomosynthesis [id number] IMPRESSION: DENSITY: The breasts are heterogeneously dense, which may obscure small masses. BI-RADS: 2 - Benign FOLLOW UP: 1 Year Follow-up Recommend return to annual screening mammography.
== END 2024-08-08 12:44 | disposition home or self-care (01) ==
LOC: RAD 12:44
PROVIDERS: PCP Registered Nurse; Visit Provider Registered Nurse
DX: Z12.31 Encounter for screening mammogram for malignant neoplasm of breast (principal); R92.333 Mammographic heterogeneous density, bilateral breasts; R92.1 Mammographic calcification found on diagnostic imaging of breast; Z13.820 Encounter for screening for osteoporosis; M85.80 Other specified disorders of bone density and structure, unspecified site
CPT/HCPCS: 77063; 77067; 77080

== ENCOUNTER → 2025-04-17 14:35 | Outpatient (BNVA) | payer MEDICARE, OTHER, SELFPAY | PROVIDERS: PCP Registered Nurse; Visit Provider Internal Medicine | DX: I08.3 Combined rheumatic disorders of mitral, aortic and tricuspid valves (principal) | CPT/HCPCS: 99214 ==

== ENCOUNTER 2025-04-26 10:08 | Outpatient (CLI) | payer MEDICARE, OTHER, SELFPAY ==
--- NOTE | 2025-04-26 10:15 | USCV_ITS ---
Joseluis Peck Age: 70 Gender: F : 1955 Exam Date: 04/26/2025 10:34 Ordering Phys: Gregor Schreiber M.D ([email or web address]) Technologist: YURY Exam Location: [facility] [place] Indication: PAD Risk Factors: Previous Vascular Surgery: Right Brachial BP: / Left Brachial BP: / Right Left Velocity (cm/s) Spectral Plaque Velocity (cm/s) Spectral Plaque Syst/Diast Broadening Syst/Diast Broadening 56.90/ 14.10 Prox CCA 71.70 / 15.00 65.90/ 14.10 Mid CCA 76.00 / 17.20 50.40/ 11.50 Distal CCA 60.80 / 12.90 44.70/ 6.90 Prox ICA 46.30 / 16.10 52.30/ 19.10 Mid ICA 72.00 / 24.10 44.50/ 12.10 Distal ICA 58.10 / 21.50 67.80 ECA 56.60 1.00 ICA/CCA 1.20 Antegrade Vertebral Antegrade 52.50/ 12.70 cm/s 18.40/ 3.10 cm/s Tri Subclavian Tri 96.50 118.6 0 CONCLUSIONS Right ICA stenosis <50%. Mild atheromatous plaque right carotid bulb/ICA. Left ICA stenosis <50%. Mild atheromatous plaque left carotid bulb/ICA. Normal antegrade Doppler flow noted in the right vertebral artery. Normal antegrade Doppler flow noted in the left vertebral artery. Brooks Carrington MD (Electronically Signed) Final Date: 26 April 2025 17:01 S
== END 2025-04-26 10:09 | disposition home or self-care (01) ==
LOC: RAD 10:09
PROVIDERS: PCP Registered Nurse; Visit Provider Internal Medicine
DX: I65.23 Occlusion and stenosis of bilateral carotid arteries (principal)
CPT/HCPCS: 93880

== ENCOUNTER → 2025-05-23 10:56 | Outpatient (BNVA) | payer MEDICARE, OTHER, SELFPAY | PROVIDERS: PCP Registered Nurse; Visit Provider Registered Nurse | DX: Z00.00 Encounter for general adult medical examination without abnormal findings (principal); M85.9 Disorder of bone density and structure, unspecified; Z13.6 Encounter for screening for cardiovascular disorders | CPT/HCPCS: 80053; 80061; 82306; 85025 ==

== ENCOUNTER 2025-08-09 12:50 | Outpatient (CLI) | payer MEDICARE, OTHER, SELFPAY ==
--- NOTE | 2025-08-09 13:20 | MM_ITS ---
WS: [id number] BILATERAL 3D TOMOSYNTHESIS DIGITAL SCREENING MAMMOGRAPHY WITH CAD CLINICAL INFORMATION: Z12.39 - Encounter for other screening for malignant neop... HISTORY: Screening mammogram. No current complaints. COMPARISON: 2023 TECHNIQUE: Bilateral CC and MLO views. FINDINGS: The breasts are composed of heterogeneous fibroglandular density tissue, which can limit the detection of small underlying mass lesions. No suspicious mass, asymmetry, calcifications, or architectural distortion. No evidence of malignancy. Vascular calcification. MM/MM [facility] tomosynthesis [id number] IMPRESSION: DENSITY: The breasts are heterogeneously dense, which may obscure small masses. BI-RADS: 2 - Benign FOLLOW UP: 1 Year Follow-up Recommend return to annual screening mammography.
--- NOTE | 2025-08-09 14:00 | XR_ITS ---
WS: [id number] DEXA (DUAL ENERGY X-RAY ABSORPTIOMETRY) Bone mineral density was performed using a Cardiio machine. HISTORY: M81.0 - Age-related osteoporosis without current patholog... COMPARISON: 08/08/2024 Lumbar spine BMD (L1-L4): 1.214 g/cm2 T score: 0.3 Z score: 2.6 Total hip BMD: Left: 0.879 g/cm2. T score: -1.0 Z score: 1.0 Right: 0.867 g/cm2. T score: -1.1 Z score: 0.9 10 year probability of a major osteoporotic fracture is 6.7%. Compared to the prior study from 08/08/2024. Lumbar spine bone mineral density has decreased by 1.9%. Bilateral hips bone mineral density has increased by 0.7%. XR/XR DEXA axial skeleton* [id number] IMPRESSION: OSTEOPENIA based upon the WHO classification for females. No significant change in bone mineral density since the prior study.
== END 2025-08-09 12:51 | disposition home or self-care (01) ==
LOC: RAD 12:51
PROVIDERS: PCP Registered Nurse; Visit Provider Registered Nurse
DX: Z12.31 Encounter for screening mammogram for malignant neoplasm of breast (principal); M81.0 Age-related osteoporosis without current pathological fracture; R92.333 Mammographic heterogeneous density, bilateral breasts; R92.323 Mammographic fibroglandular density, bilateral breasts; R92.1 Mammographic calcification found on diagnostic imaging of breast; M85.89 Other specified disorders of bone density and structure, multiple sites
CPT/HCPCS: 77063; 77067; 77080